=== PATIENT | male | born 1955 | race Caucasian/White ===

== ENCOUNTER → 2023-06-08 16:11 | Outpatient (CLI) | payer MEDICARE, OTHER, SELFPAY ==
--- NOTE | 2023-06-08 | DI.RAD.S_ITS ---
PROCEDURE: XR FOOT RT MIN 3V INDICATIONS: PAIN IN RT ANKLE TECHNIQUE: 3 views of the foot were acquired. COMPARISON: [facility], CR, XR FOOT 3 VIEWS WEIGHT BEARING RIGHT, 05/07/2021, 9:18. FINDINGS: Bones: No fractures or dislocations. No suspicious bony lesions. Tarsal navicular surgical anchor. Plantar calcaneal spurring. 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 Soft tissues: No tibiotalar joint effusion. Achilles tendon appears normal. IMPRESSION: No acute osseous abnormality. If pain persists with conservative management, consider repeat x-ray in 10-14 days or cross-sectional imaging. Dictated by: Jeff Chacko M.D. on 06/09/2023 at 10:41 Approved by: Jeff Chacko M.D. on 06/09/2023 at 10:44
== END ==
PROVIDERS: PCP Family Medicine; Referring Provider Family Medicine; Visit Provider Family Medicine
DX: M77.31 Calcaneal spur, right foot (principal); M25.571 Pain in right ankle and joints of right foot; G89.29 Other chronic pain
CPT/HCPCS: 73630